=== PATIENT | male | born 2000 | race Two or more races ===

== ENCOUNTER 2023-01-14 17:22 | Emergency (ER) | payer MEDICAID, OTHER ==
[~2023-01-14] VITALS: Ht 167.6 cm; Wt 89.6 kg
[2023-01-14 17:43] VITALS: BP 155/90; RESP 15; TEMP 99; O2SAT 100
[2023-01-14 17:44] VITALS: PULSE 102
[2023-01-14] MEDS ORDERED: IOHEXOL 350 MG/ML 100ML IJ ONE (20:19)
== END 2023-01-15 03:35 | disposition left against medical advice (07) ==
LOC: ER 17:22
DX: R29.810 Facial weakness (principal); R06.02 Shortness of breath; Z53.21 Procedure and treatment not carried out due to patient leaving prior to being seen by health care provider
CPT/HCPCS: 70450; 71045; 93005; 99281; Q9967